=== PATIENT | female | born 1950 | race Caucasian/White ===

== ENCOUNTER → 2020-12-03 | Outpatient (CLI) | payer MEDICARE, OTHER ==
--- NOTE | 2020-12-03 11:25 | REP ---
INDICATION: PRIMARY OSTEOARTHRITIS, UNSPECIFIED HAND COMPARISON: None. TECHNIQUE: AP, lateral, bilateral oblique views right and left hand. FINDINGS: Right hand demonstrates advanced arthritic changes at the 5th distal interphalangeal joint and 1st interphalangeal joint demonstrating subchondral sclerosis, joint space narrowing, marginal osteophytes and joint space narrowing. Moderate osteoarthritic changes are also identified throughout the remainder of the right hand. No periarticular lucencies or erosive changes and no significant periarticular swelling noted. No evidence for acute fracture or dislocation. No subcutaneous emphysema or foreign body. Left hand demonstrates relatively moderate osteoarthritic degenerative changes including subchondral sclerosis and joint space narrowing primarily involving the interphalangeal joints and 1st metacarpophalangeal joint. No periarticular erosive changes or lucencies and no significant periarticular swelling noted. No evidence for acute fracture or dislocation. No subcutaneous emphysema or foreign body. IMPRESSION: Osteoarthritic degenerative changes (right greater than left).. <Electronically signed by Janes Blanco > 12/03/20 1124
== END ==
LOC: M RAD 11:05
PROVIDERS: ATTEND Internal Medicine
DX: M19.041 Primary osteoarthritis, right hand (principal); M19.042 Primary osteoarthritis, left hand
CPT/HCPCS: 73130; G0463

== ENCOUNTER → 2020-12-13 | Outpatient (CLI) | payer MEDICARE, OTHER ==
--- NOTE | 2020-12-15 09:59 | REP ---
INDICATION: RT HAND WEAKNESS. COMPARISON: Radiographs 12/03/2020. TECHNIQUE: Multiple sequences obtained in the axial, coronal and sagittal planes. FINDINGS: A subcentimeter cyst is seen in the distal aspect of the 1st metacarpal. There is diffuse chondromalacia of the distal interphalangeal joints with mild subchondral marrow edema along the 5th DIP joint. There is no occult fracture. The triangular fibrocartilage complex is intact. The scapholunate and lunatotriquetral ligaments appear intact. Collateral ligaments of the digits appear intact. The flexor and extensor tendons appear intact with no evidence of tenosynovitis. There is, however, nonspecific diffuse edema involving the 3rd dorsal interosseous muscle between the proximal shafts of the 3rd and 4th metacarpals. No ganglion cyst is seen. There is normal amount of scattered joint fluid. IMPRESSION: Diffuse degenerative changes distal interphalangeal joints. Nonspecific diffuse edema involving the 3rd dorsal interosseous muscle between the proximal shafts of the 3rd and 4th metacarpals. This may indicate tendinitis or partial tear. <Electronically signed by Tonny Gardner > 12/15/20 0422
== END ==
LOC: M RAD 09:28
PROVIDERS: ATTEND Internal Medicine
DX: M85.441 Solitary bone cyst, right hand (principal); M94.241 Chondromalacia, joints of right hand; M79.89 Other specified soft tissue disorders